=== PATIENT | female | born 1975 | race Caucasian/White ===

== ENCOUNTER 2017-05-20 08:52 | Emergency (ER) | payer OTHER ==
[~2017-05-20] VITALS: Ht 160 cm; Wt 94.0 kg
[2017-05-20 08:53] VITALS: Ht 160 cm; Wt 94.0 kg
--- NOTE | 2017-05-20 09:17 | ERD ---
ER Documentation Chief Complaint Chief Complaint lower abdominal pain which radiates to the back started 2 days ago HPI 42-year-old female, history of obesity, anemia, with gallstones, presents with right lower quadrant abdominal pain that is radiating to her back for 2 days. Patient describes it as dull, achy, constant and gradually becoming worse. She has tried taking Tylenol and ibuprofen without much relief. She states it originates in the right lower quadrant. Her history includes obesity, and surgeries include gastric sleeve, skin removal and . She also has been anemic, with elevated white blood cell count that dropped after , no definite diagnosis of leukemia. She denies fevers, chills, nausea, vomiting, diarrhea. Patient denies vaginal bleeding. Patient states that she has been constipated, it has been about 4 days since her last bowel movement. ROS All systems reviewed and are negative except as per history of present illness. Medications Home Meds Active Scripts Docusate Sodium* (Colace*) 100 Mg Capsule, 100 MG PO BID, #60 CAP Prov:VIVIENNE AVELAR PA-C 05/20/17 Magnesium Citrate* (Magnesium Citrate*) 296 Ml Solution, 296 ML PO ONCE, #1 BOTTLE Prov:VIVIENNE AVELAR PA-C 05/20/17 PMhx/Soc Medical and Surgical Hx: pt denies Medical Hx, pt denies Surgical Hx Hx Alcohol Use: No Hx Substance Use: No Hx Tobacco Use: No Smoking Status: Never smoker Physical Exam Vitals Vital Signs Date Time Temp Pulse Resp B/P Pulse Ox O2 Delivery O2 Flow Rate FiO2 05/20/17 08:53 98.6 79 18 130/60 96 Physical Exam General: Well-developed, well-nourished. The patient appears in no acute distress. HEENT: Head is normocephalic, atraumatic. No scleral icterus. Neck: Supple. Nontender. Lungs: Clear to auscultation. Normal air movement. Heart: Regular rate and rhythm. S1 and S2 are normal. No murmurs, gallops, or rubs. Abdomen: Soft, patient is tender to palpation the right lower quadrant nondistended. Bowel sounds are normoactive. Extremities: No clubbing or cyanosis. Normal pulses. Moving extremities x 4. No weakness. Neurologic: Alert and oriented 3. No focal deficits. Skin: Normal turgor. No rash or lesions. Result Diagram: 05/20/1732 05/20/17 0932 Results 24 hrs Laboratory Tests Test 05/20/17 09:32 White Blood Count 9.010^3/ul Red Blood Count 4.9110^6/ul Hemoglobin 11.2g/dl Hematocrit 36.3% Mean Corpuscular Volume 73.9fl Mean Corpuscular Hemoglobin 22.8pg Mean Corpuscular Hemoglobin Concent 30.9g/dl Red Cell Distribution Width 15.9% Platelet Count 44047^3/UL Mean Platelet Volume 9.3fl Neutrophils % 53.3% Lymphocytes % 37.3% Monocytes % 6.8% Eosinophils % 1.7% Basophils % 0.2% Nucleated Red Blood Cells % 0.0/100WBC Neutrophils # 4.810^3/ul Lymphocytes # 3.310^3/ul Monocytes # 0.610^3/ul Eosinophils # 0.210^3/ul Basophils # 0.010^3/ul Nucleated Red Blood Cells # 0.010^3/ul Urine Color YELLOW Urine Clarity CLEAR Urine pH 5.0 Urine Specific [place] 1.019 Urine Ketones NEGATIVEmg/dL Urine Nitrite NEGATIVEmg/dL Urine Bilirubin NEGATIVEmg/dL Urine Urobilinogen NEGATIVEmg/dL Urine Leukocyte Esterase NEGATIVELeu/ul Urine Hemoglobin NEGATIVEmg/dL Urine Glucose NEGATIVEmg/dL Urine Total Protein NEGATIVEmg/dl Sodium Level 141mmol/L Potassium Level 4.2mmol/L Chloride Level 104mmol/L Carbon Dioxide Level 28mmol/L Anion Gap 13 Blood Urea Nitrogen 14mg/dl Creatinine 0.69mg/dl Glucose Level 81mg/dl Calcium Level 9.3mg/dl Total Bilirubin 0.7mg/dl Direct Bilirubin 0.00mg/dl Indirect Bilirubin 0.7mg/dl Aspartate Amino Transf (AST/SGOT) 20IU/L Alanine Aminotransferase (ALT/SGPT) 24IU/L Alkaline Phosphatase 109IU/L Total Protein 7.6g/dl Albumin 4.1g/dl Globulin 3.50g/dl Albumin/Globulin Ratio 1.17 Lipase 76U/L Serum HCG, Qualitative NEGATIVE Current Medications Medications (Trade) Dose Ordered Sig/Leyla Route PRN Reason Start Time Stop Time Status Last Admin Dose Admin Morphine Sulfate (morphine) 4 mg ONCE STAT IV 05/20/17 10:38 05/20/17 10:39 DC 05/20/17 10:51 Ondansetron HCl (Zofran Inj) 4 mg ONCE STAT IV 05/20/17 10:38 05/20/17 10:39 DC 05/20/17 10:51 IV Flush 10 ml 10 ml STK-MED ONCE .ROUTE 05/20/17 10:57 05/20/17 10:58 DC 05/20/17 11:06 Sodium Chloride (NS) 100 ml @ ud STK-MED ONCE .ROUTE 05/20/17 10:57 05/20/17 10:58 DC 05/20/17 11:06 Iohexol (Omnipaque 300mg/ ml) 150 ml STK-MED ONCE .ROUTE 05/20/17 10:57 05/20/17 10:58 DC 05/20/17 11:06 DIAGNOSTIC IMAGING REPORT Patient: BIBI VILLAR : 1975 Age: 42 Sex: F MR #: [id number] DOS: 05/20/17 0903 Ordering MD: VIVIENNE AVELAR PA-C Location: [facility] Room/Bed: PROCEDURE: CT abdomen and pelvis with contrast. CLINICAL INDICATION: Right lower quadrant pain radiating to back TECHNIQUE: CT scan of the abdomen and pelvis without contrast was performed on a [employer] 64-slice CT scanner utilizing axial imaging from the lung bases through the pubis symphysis. The patient was scanned after the uneventful intravenous administration of 90 cc of Omnipaque-300. Sagittal and coronal reformatted images were made. CTDI vol 20.48 mGy and DLP 1285.27 mGy- cm. DICOM images are available. One of the following 3 does reduction techniques were used during this CT examination: 1) Automated exposure control 2) Adjustment of the mA +/- kV according to patient size or 3) Use of iterative reconstruction technique COMPARISON: None. FINDINGS: CT abdomen: The lung bases are clear. No focal infiltrates, masses or effusions are present. The heart size and imaged mediastinum are normal. No pericardial effusion is present. The visualized liver, spleen, pancreas, and gallbladder are normal. No intrahepatic or extra panic biliary ductal dilatation is noted. The visualized stomach demonstrates status post gastric bypass surgery. A small hiatal hernia is present. The bilateral adrenal glands are normal. The bilateral kidneys are normal. No evidence for acute hydronephrosis or nephroureterolithiasis is present. The visualized bowel is nonobstructive. No evidence for diverticulosis, diverticulitis, or appendicitis is present. No evidence for pneumoperitoneum or ascites is noted. CT pelvis: The visualized bowel, including the appendix, is normal in appearance. The urinary bladder is well distended. The uterus and bilateral adnexa are normal. No mass, lymphadenopathy, or free fluid is seen. There is no evidence of free air. The surrounding osseous structures are remarkable for degenerative changes the bilateral sacroiliac joints and the imaged spine.. IMPRESSION: 1. No evidence for acute intra-abdominal or pelvic pathology. 2. Status post gastric bypass surgery and small hiatal hernia. 3. Nonobstructive bowel gas pattern and no evidence for acute diverticulitis or appendicitis. RPTAT: HDC .Tricia Fuchs MD, MD Date Time Electronically viewed and signed by .Tricia Fuchs MD, MD on 05/20/2017 11: 16 Procedures/MDM ED COURSE: Patient an IV line established. Patient had blood work obtained, urine as well as CT abdomen pelvis. She was offered pain medication but she declines at this time. MEDICAL DECISION MAKIN-year-old female history of obesity, anemia of gallstones presents right lower quadrant abdominal pain going to her back for 2 days. She states it is associated with constipation, there is no evidence of an acute abdominal surgical process. No evidence of appendicitis, bowel obstruction, no adnexal abnormalities, acute hepatobiliary process. There is mild anemia but no leukocytosis and her CBC. Her CMP is unremarkable, no transaminitis or evidence of pancreatitis, it she is not , and urine is negative for infection. She reports that she has not had a normal bowel movement in several days and was given 90 cm citrate, Colace advised to take Tylenol ibuprofen for pain. Departure Diagnosis: Primary Impression: Constipation Additional Impression: Abdominal pain Condition: VIVIENNE Guardado PA-C May 20, 2017 09:17
[2017-05-20 09:46] LABS: BASOPHILS % 0.2 % (0.0-2.0); EOSINOPHILS # 0.2 10^3/ul (0.0-0.5); EOSINOPHILS % 1.7 % (0.0-7.0); HEMATOCRIT 36.3 % (37.0-47.0); HEMOGLOBIN 11.2 g/dl (12.0-16.0); LYMPHOCYTES # 3.3 10^3/ul (0.8-2.9); LYMPHOCYTES % 37.3 % (15.0-51.0); MEAN CORPUSCULAR HEMOGLOBIN 22.8 pg (29.0-33.0); MEAN CORPUSCULAR HGB CONC 30.9 g/dl (32.0-37.0); MEAN CORPUSCULAR VOLUME 73.9 fl (82.0-101.0); MEAN PLATELET VOLUME 9.3 fl (7.4-10.4); MONOCYTE # 0.6 10^3/ul (0.3-0.9); MONOCYTES % 6.8 % (0.0-11.0); NEUTROPHIL # 4.8 10^3/ul (1.6-7.5); NEUTROPHILS % 53.3 % (39.0-77.0); PLATELET COUNT 324 10^3/UL (140-415); RED BLOOD COUNT 4.91 10^6/ul (4.20-5.40); RED CELL DISTRIBUTION WIDTH 15.9 % (11.5-14.5)
[2017-05-20 09:55] LABS: ADD UMIC NO; UR ASCORBIC ACID NEGATIVE (NEGATIVE); UR BILIRUBIN (Dip) NEGATIVE (NEGATIVE); UR BLOOD (Dip) NEGATIVE (NEGATIVE); UR CLARITY CLEAR (CLEAR); UR COLOR YELLOW (YELLOW); UR GLUCOSE (Dip) NEGATIVE (NEGATIVE); UR KETONES (Dip) NEGATIVE (NEGATIVE); UR LEUKOCYTE ESTERASE (Dip) NEGATIVE Leu/ul (NEGATIVE); UR NITRITE (Dip) NEGATIVE (NEGATIVE); UR SPECIFIC GRAVITY (Dip) 1.019 (1.003-1.030); UR TOTAL PROTEIN (Dip) NEGATIVE (NEGATIVE); UR UROBILINOGEN (Dip) NEGATIVE (NEGATIVE)
[2017-05-20 10:18] LABS: ALBUMIN 4.1 g/dl (3.3-4.9); ALBUMIN/GLOBULIN RATIO 1.17; BILIRUBIN,INDIRECT 0.7 mg/dl (0-1.1); BILIRUBIN,TOTAL 0.7 mg/dl (0.2-1.3); CALCIUM 9.3 mg/dl (8.4-10.2); CREATININE 0.69 mg/dl (0.44-1.00); POTASSIUM 4.2 mmol/L (3.5-5.1); TOTAL PROTEIN 7.6 g/dl (6.1-8.1)
[2017-05-20] MEDS ORDERED: morphine 4 MG/ML VIAL IV STA (10:38)
[2017-05-20] MEDS ORDERED: ONDANSETRON 4 MG INJ IV STA (10:38)
[2017-05-20] MEDS ORDERED: SOD CHLORIDE 0.9% 100 ML ONE (10:57)
[2017-05-20] MEDS ORDERED: IOHEXOL 300MG/ML 150 ML BTL ONE (10:57)
--- NOTE | 2017-05-20 11:16 | RADRPT ---
PROCEDURE: CT abdomen and pelvis with contrast. CLINICAL INDICATION: Right lower quadrant pain radiating to back TECHNIQUE: CT scan of the abdomen and pelvis without contrast was performed on a [employer] 64- slice CT scanner utilizing axial imaging from the lung bases through the pubis symphysis. The patie nt was scanned after the uneventful intravenous administration of 90 cc of Omnipaque-300. Sagittal and coronal reformatted images were made. CTDI vol 20.48 mGy and DLP 1285.27 mGy-cm. DICOM images a re available. One of the following 3 does reduction techniques were used during this CT examination: 1) Automated exposure control 2) Adjustment of the mA +/- kV according to patient size or 3) Use of iterative reconstruction technique COMPARISON: None. FINDINGS: CT abdomen: The lung bases are clear. No focal infiltrates, masses or effusions are present. The heart size and imaged mediastinum are normal. No pericardial effusion is present. The visualized liver, spleen, pancreas, and gallbladder are normal. No intrahepatic or extra panic b iliary ductal dilatation is noted. The visualized stomach demonstrates status post gastric bypass surgery. A small hiatal hernia is pre sent. The bilateral adrenal glands are normal. The bilateral kidneys are normal. No evidence for acute hyd ronephrosis or nephroureterolithiasis is present. The visualized bowel is nonobstructive. No evidence for diverticulosis, diverticulitis, or appendici tis is present. No evidence for pneumoperitoneum or ascites is noted. CT pelvis: The visualized bowel, including the appendix, is normal in appearance. The urinary bladder is well distended. The uterus and bilateral adnexa are normal. No mass, lymphadenopathy, or free fluid is se en. There is no evidence of free air. The surrounding osseous structures are remarkable for degenerative changes the bilateral sacroiliac joints and the imaged spine.. IMPRESSION: 1. No evidence for acute intra-abdominal or pelvic pathology. 2. Status post gastric bypass surgery and small hiatal hernia. 3. Nonobstructive bowel gas pattern and no evidence for acute diverticulitis or appendicitis. RPTAT: HDC .Tricia Fuchs MD, MD Date Time Electronically viewed and signed by .Tricia Fuchs MD, on 05/20/2017 11:16 .C/
[2017-05-20] MEDS ORDERED: DOCU-144 PO (11:33)
[2017-05-20] MEDS ORDERED: MAGN296S40 PO (11:33)
[2017-05-20 11:45] VITALS: BP 121/93; PULSE 65; RESP 18
== END 2017-05-20 11:46 | disposition home or self-care (01) ==
LOC: FTE 08:52
DX: K59.00 Constipation, unspecified (principal)
CPT/HCPCS: 36415; 74177; 80053; 81003; 83690; 84703; 85025; 96374; 96375; J2270; J2405; Q9967; Z7502; Z7610

== ENCOUNTER 2017-07-06 13:04 | Emergency (ER) | END 2017-07-06 16:37 | disposition home or self-care (01) ==

== ENCOUNTER 2017-07-08 05:23 | Emergency (ER) | END 2017-07-08 07:47 | disposition home or self-care (01) ==

== ENCOUNTER 2017-07-14 03:54 | Emergency (ER) | END 2017-07-14 06:12 | disposition home or self-care (01) ==

== ENCOUNTER 2018-12-03 10:05 | Emergency (ER) | payer OTHER ==
[~2018-12-03] VITALS: Ht 160 cm; Wt 96.5 kg
[~2018-12-03 10:05] MED LIST: CEPH-443 PO; DOCU-144 PO; IBUP-1542 PO; MAGN296S40 PO
[2018-12-03 10:15] VITALS: Ht 160 cm; Wt 96.5 kg
[2018-12-03] MEDS ORDERED: ONDANSETRON 4 MG INJ IV STA (11:11)
[2018-12-03] MEDS ORDERED: HYDROmorphONE 1 MG/ML SYG IV STA (11:11)
[2018-12-03] MEDS ORDERED: SOD CHLORIDE 0.9% 1,000 ML IV STA (11:11)
--- NOTE | 2018-12-03 11:20 | ERD ---
ER Documentation Chief Complaint Chief Complaint RT lower quadrant burning pain w/nausea, denies v/d HPI This is a very pleasant 43-year-old female presents to the emergency department with sudden onset of right upper quadrant pain that began this morning at roughly 3 AM, 8 hours prior to arrival. The patient indicates that the pain was a sharp shooting pain. The pain began to radiate to her right lower quadrant. She is felt nauseous but has not experienced any emesis. She had an egg salad sandwich for breakfast at 7 AM. She indicated that this did not exacerbate her pain. She said no fevers or shaking or chills. She states she is never had any similar pain in the past. She does state that she was diagnosed with cho lelithiasis when she was 2017 but never had any similar pain as she is experiencing at this moment. She had a normal bowel movement this morning with no diarrhea. She has no shortness of breath at rest or exertion. The patient denies any frequency urgency or dysuria. ROS All systems reviewed and are negative except as per history of present illness. Medications Home Meds Discontinued Scripts Ibuprofen* (Motrin*) 600 Mg Tab, 600 MG PO Q6, #30 TAB Prov:SASKIA WHYTE 07/14/17 Cephalexin* (Keflex*) 500 Mg Capsule, 500 MG PO BID for 7 Days, CAP Prov:SASKIA WHYTE C 07/14/17 Ibuprofen* (Motrin*) 600 Mg Tab, 600 MG PO Q6H PRN for PAIN AND OR ELEVATED TEMP, #30 TAB Prov:UJLIA CAMPOS ROD POINTER 07/08/17 Docusate Sodium* (Colace*) 100 Mg Capsule, 100 MG PO BID, #60 CAP Prov:VIVIENNE AVELAR PA-C 05/20/17 Magnesium Citrate* (Magnesium Citrate*) 296 Ml Solution, 296 ML PO ONCE, #1 BOTTLE Prov:VIVIENNE AVELAR PA-C 05/20/17 Allergies Allergies: Coded Allergies: No Known Allergy (Unverified , 12/03/18) PMhx/Soc History of Surgery: Yes (GASTRIC BYPASS,SKIN REMOVAL,C SECTION ) Anesthesia Reaction: No Hx Neurological Disorder: No Hx Respiratory Disorders: No Hx Cardiac Disorders: No Hx Psychiatric Problems: No Hx Miscellaneous Medical Probl: Yes (ANEMIA) Hx Alcohol Use: No Hx Substance Use: No Hx Tobacco Use: No Smoking Status: Never smoker Physical Exam Vitals Vital Signs Date Temp Pulse Resp B/P (MAP) Pulse Ox O2 O2 Flow FiO2 Time Delivery Rate 12/03/18 98.4 87 20 170/72 99 10:15 (104) Physical Exam Constitutional:Well-developed. Well-nourished. Patient tearful and appeared to be in discomfort secondary to pain HEENT:Normocephalic. Atraumatic.Pupils were equal round reactive to light. Moist mucous membranes. Respiratory: Not using accessory muscles of respiration.Lungs were clear to auscultation bilaterally. No rhonchi. No rales. No wheezing. Cardiovascular: Regular rate regular rhythm.No murmurs. No rubs were appreciated.S1, S2 normal. Distal pulses are palpable 2+ bilaterally. GI: Abdomen was soft. Tenderness in the right upper quadrant. Positive Rivera sign. Tenderness in the right lower quadrant nonspecific over McBurney's point. Psoas sign negative. Obturator sign negative. Non Distended. No pulsatile abdominal masses or bruits. No rebound. No guarding. Bowel sounds were present and normal. Skin: No petechia, no purpura. No lesions on the palms or the soles of the feet. No maculopapular rash. NEURO: Patient was alert, awake, orientated x3.No facial droop. Gait observed and normal with no ataxia.Speech had regular rate and rhythm. No focal neurological deficits. Result Diagram: 12/03/18 1124 12/03/18 1124 Results 24 hrs Laboratory Tests Test 12/03/18 11:24 White Blood Count 8.5 10^3/ul Red Blood Count 4.70 10^6/ul Hemoglobin 9.3 g/dl Hematocrit 32.5 % Mean Corpuscular Volume 69.1 fl Mean Corpuscular Hemoglobin 19.8 pg Mean Corpuscular Hemoglobin Concent 28.6 g/dl Red Cell Distribution Width 17.8 % Platelet Count 395 10^3/UL Mean Platelet Volume 9.4 fl Immature Granulocytes % 1.200 % Neutrophils % 57.5 % Lymphocytes % 31.7 % Monocytes % 7.4 % Eosinophils % 1.8 % Basophils % 0.4 % Nucleated Red Blood Cells % 0.0 /100WBC Immature Granulocytes # 0.100 10^3/ul Neutrophils # 4.9 10^3/ul Lymphocytes # 2.7 10^3/ul Monocytes # 0.6 10^3/ul Eosinophils # 0.2 10^3/ul Basophils # 0.0 10^3/ul Nucleated Red Blood Cells # 0.0 10^3/ul Prothrombin Time 11.7 Sec Prothrombin Time Ratio 0.9 INR International Normalized Ratio 0.85 Activated Partial Thromboplast Time 26.9 Sec Urine Color YELLOW Urine Clarity SLIGHTLY CLOUDY Urine pH 5.0 Urine Specific [place] 1.017 Urine Ketones NEGATIVE mg/dL Urine Nitrite NEGATIVE mg/dL Urine Bilirubin NEGATIVE mg/dL Urine Urobilinogen NEGATIVE mg/dL Urine Leukocyte Esterase NEGATIVE Damon/ul Urine Microscopic RBC 2 /HPF Urine Microscopic WBC 1 /HPF Urine Squamous Epithelial Cells FEW /HPF Urine Hemoglobin NEGATIVE mg/dL Urine Glucose NEGATIVE mg/dL Urine Total Protein NEGATIVE mg/dl Sodium Level 139 mmol/L Potassium Level 4.8 mmol/L Chloride Level 104 mmol/L Carbon Dioxide Level 26 mmol/L Anion Gap 9 Blood Urea Nitrogen 17 mg/dl Creatinine 0.61 mg/dl Est Glomerular Filtrat Rate mL/min > 60 mL/min Glucose Level 96 mg/dl Calcium Level 9.3 mg/dl Total Bilirubin 0.6 mg/dl Direct Bilirubin 0.00 mg/dl Indirect Bilirubin 0.6 mg/dl Aspartate Amino Transf (AST/SGOT) 29 IU/L Alanine Aminotransferase (ALT/SGPT) 15 IU/L Alkaline Phosphatase 101 IU/L Troponin I < 0.012 ng/ml Total Protein 7.5 g/dl Albumin 3.9 g/dl Globulin 3.60 g/dl Albumin/Globulin Ratio 1.08 Amylase Level 58 U/L Lipase 86 U/L Current Medications Medications Dose Sig/Leyla Start Time Status Last (Trade) Ordered Route PRN Stop Time Admin Dose Reason Admin Sodium 1,000 ml @ Q1H STAT 12/03/18 DC 12/03/18 Chloride 1,000 mls/hr IV 11:11 11:30 12/03/18 12:10 1 mg ONCE STAT 12/03/18 DC 12/03/18 Hydromorphone IV 11:11 11:30 HCl 12/03/18 11:13 (Dilaudid) Ondansetron 4 mg ONCE STAT 12/03/18 DC 12/03/18 HCl (Zofran IV 11:11 11:30 Inj) 12/03/18 11:13 IV Flush 10 ml STK-MED 12/03/18 DC 12/03/18 (NS 10 ml) ONCE .ROUTE 12:16 12:29 12/03/18 12:17 Sodium 100 ml @ ud STK-MED 12/03/18 DC 12/03/18 Chloride ONCE .ROUTE 12:16 12:29 12/03/18 12:17 Iohexol 150 ml STK-MED 12/03/18 DC 12/03/18 (Omnipaque ONCE .ROUTE 12: 12:30 300mg/ ml) 12/03/18 12:17 Procedures/MDM This patient presented to the emergency department with abdominal pain and was seen and evaluated by myself. My differential diagnosis included but was not limited to abdominal aortic aneurysm, appendicitis, pancreatitis, perforated peptic ulcer, perforated viscus, Boerhaaves syndrome or visceral pain such as diverticulitis, DKA, esophagitis, hepatitis or bowel obstruction. The patient was placed on a air sampling and monitoring, continuous pulse oximetry, and IV access was established by nursing staff. Patient was given intravenous morphine and Zofran for analgesic control. The patient was also given Toradol after the CT scan confirmed that the patient did not have evidence of appendicitis or surgical abdomen. The patient did have cholelithiasis without evidence of cholecystitis. I obtained a 12-lead EKG tracing to rule out for atypical myocardial infarction. 12 Lead EKG tracing ordered and reviewed by myself showed: Normal sinus rhythm of 66 bpm and no arrhythmia. OR interval normal. QRS duration normal. No ST segment elevation No ST segment depression. No changes consistent with acute ischemia. I spoke with renal physician Dr. Mesa who will arrange for outpatient surgical follow-up for definitive treatment suggestion of a possible cholecystectomy. She was sent home with anti-inflammatories. The patient was discharged home in fair condition. They were instructed to return to the emergency department at any time if there was any worsening of their condition. The patient stated they would follow up with their PCP in the next 24-48 hours to initiate a suitable medication regimen under the care of their PCP as well as to allow their PCP to monitor any drug reactions. The patient was discharged home with prescriptions after they gave informed consent to the new medication. They were also fully informed by myself on the adverse effects and adverse drug interactions in order to provide adequate safeguards to prevent possible adverse reactions to medications. Departure Diagnosis: Primary Impression: Cholelithiasis Cholelithiasis location: gallbladder Cholecystitis presence: without cholecystitis Biliary obstruction: without biliary obstruction Qualified Codes: K80.20 - Calculus of gallbladder without cholecystitis without obstruction Condition: JULIA Lorenzo MD Dec 03, 2018 11:20
[2018-12-03] MEDS ORDERED: SOD CHLORIDE 0.9% 100 ML ONE (12:16)
[2018-12-03] MEDS ORDERED: IOHEXOL 300MG/ML 150 ML BTL ONE (12:16)
[2018-12-03] MEDS ORDERED: KETOROLAC 30 MG INJ IV STA (13:26)
[2018-12-03] MEDS ORDERED: IBUP800T48 PO (13:29)
[2018-12-03 14:21] VITALS: BP 99/48; PULSE 67; RESP 18
== END 2018-12-03 14:21 | disposition home or self-care (01) ==
LOC: E/R 10:05
DX: K80.20 Calculus of gallbladder without cholecystitis without obstruction (principal)
CPT/HCPCS: 74177; 80053; 81001; 81003; 82150; 83690; 84484; 85025; 85610; 85730; 87086; 93005; 96374; 96375; J1170; J1885; J2405; J7030; Q9967; Z7502; Z7610